=== PATIENT | male | born 1985 | race African-American/Black ===

== ENCOUNTER 2016-07-25 23:32 | Emergency (ER) | payer OTHER ==
[2016-07-26 00:10] VITALS: BP 143/88; PULSE 82; RESP 19; TEMP 98.7; O2SAT 99
--- NOTE | 2016-07-26 00:12 | PD ---
HPI Chief Complaint: Psychiatric Symptoms Time Seen by Provider: 00:00 Travel History International Travel<30 days: No Contact w/Intl Traveler<30days: No Traveled to known affect area: No History of Present Illness HPI 31-year-old male presents under Hernandez act initiated by the police for her. The patient reports that he was in an argument his girlfriend scott. He decided to walk down the street to the [address] [place] [address]. His plan was to just stand there until she came out looking for him. He reports that the police stopped him and he decided to tell the police that "maybe I will get hit by a car" and this was interpreted as a suicidal gesture. He was then placed under Hernandez act. The patient reports that primarily his main motivation tinnitus to make his girlfriend worried about where he is. He denies any desire to harm himself or anybody else. He denies any drug or alcohol use. He has no medical complaints at this time. [facility] Social History Alcohol Use: Yes Tobacco Use: Yes Allergies-Medications (Allergen,Severity, Reaction): Coded Allergies: No Known Allergies (Unverified , 07/25/16) Reported Meds & Prescriptions Reported Meds & Active Scripts Active No Active Prescriptions or Reported Medications Review of Systems Except as stated in HPI: all other systems reviewed are Neg Physical Exam Narrative GENERAL: Well-developed well-nourished male in no acute distress SKIN: Warm and dry. HEAD: Atraumatic. Normocephalic. EYES: Pupils equal and round. No scleral icterus. No injection or drainage. ENT: No nasal bleeding or discharge. Mucous membranes pink and moist. NECK: Trachea midline. No JVD. CARDIOVASCULAR: Regular rate and rhythm. No murmur appreciated. RESPIRATORY: No accessory muscle use. Clear to auscultation. Breath sounds equal bilaterally. GASTROINTESTINAL: Abdomen soft, non-tender, nondistended. Hepatic and splenic margins not palpable. MUSCULOSKELETAL: No obvious deformities. NEUROLOGICAL: Awake and alert. No obvious cranial nerve deficits. Motor grossly within normal limits. Normal speech. PSYCHIATRIC: Appropriate mood and affect; insight and judgment normal. Data Data Last Documented VS Vital Signs Date Time Temp Pulse Resp B/P Pulse Ox O2 Delivery O2 Flow Rate FiO2 07/26/16 02:00 73 18 122/67 97 Room Air 07/26/16 00:10 98.7 Orders Complete Blood Count With Diff (07/26/16 00:09) Comprehensive Metabolic Panel (07/26/16 00:09) Psych Screen (07/26/16 00:09) Drug Screen, Random Urine (07/26/16 00:09) Diet Regular Basic (07/26/16 Breakfast) Labs Laboratory Tests Test 07/26/16 02:20 White Blood Count 5.7 TH/MM3 Red Blood Count 5.17 MIL/MM3 Hemoglobin 13.5 GM/DL Hematocrit 39.7 % Mean Corpuscular Volume 76.8 FL Mean Corpuscular Hemoglobin 26.0 PG Mean Corpuscular Hemoglobin 33.9 % Concent Red Cell Distribution Width 14.1 % Platelet Count 236 TH/MM3 Mean Platelet Volume 8.6 FL Neutrophils (%) (Auto) 36.5 % Lymphocytes (%) (Auto) 48.0 % Monocytes (%) (Auto) 9.4 % Eosinophils (%) (Auto) 4.9 % Basophils (%) (Auto) 1.2 % Neutrophils # (Auto) 2.1 TH/MM3 Lymphocytes # (Auto) 2.7 TH/MM3 Monocytes # (Auto) 0.5 TH/MM3 Eosinophils # (Auto) 0.3 TH/MM3 Basophils # (Auto) 0.1 TH/MM3 CBC Comment DIFF FINAL Differential Comment Sodium Level 141 MEQ/L Potassium Level 3.6 MEQ/L Chloride Level 103 MEQ/L Carbon Dioxide Level 31.5 MEQ/L Anion Gap 7 MEQ/L Blood Urea Nitrogen 13 MG/DL Creatinine 1.20 MG/DL Estimat Glomerular Filtration 85 ML/MIN Rate Random Glucose 118 MG/DL Calcium Level 8.8 MG/DL Total Bilirubin 0.3 MG/DL Aspartate Amino Transf 17 U/L (AST/SGOT) Alanine Aminotransferase 27 U/L (ALT/SGPT) Alkaline Phosphatase 76 U/L Total Protein 7.4 GM/DL Albumin 3.9 GM/DL [facility] Medical Decision Making Medical Screen Exam Complete: Yes Emergency Medical Condition: Yes Medical Record Reviewed: Yes Differential Diagnosis Adjustment reaction, acute psychosis, substance induced mood disorder, major depressive disorder Narrative Course 31-year-old male presents under a Hernandez act for psychiatric evaluation. Mental health screening discussed with the patient. Psychiatric screen ordered. The patient is medically cleared for psychiatric disposition. Diagnosis Primary Impression: Medical clearance for psychiatric admission Scripts No Active Prescriptions or Reported Meds Brady Osborne Jul 26, 2016 00:12
[2016-07-26 02:00] VITALS: BP 122/67; PULSE 73; RESP 18; O2SAT 97
[2016-07-26 02:38] LABS: AUTOMATED NEUTROPHIL # 2.1 TH/MM3 (1.8-7.7); BASOPHIL # 0.1 TH/MM3 (0-0.2); BASOPHIL % 1.2 % (0.0-2.0); EOSINOPHIL # 0.3 TH/MM3 (0-0.4); EOSINOPHIL % 4.9 % (0.0-4.0); HEMATOCRIT 39.7 % (39.0-51.0); HEMO FLAGS DIFF FINAL; LYMPHOCYTE # 2.7 TH/MM3 (1.0-4.8); MEAN CELL VOLUME 76.8 FL (80.0-100.0); MEAN CORPUSCULAR HGB CONC 33.9 % (32.0-36.0); MONO % 9.4 % (0.0-8.0); NEUT % 36.5 % (16.0-70.0); PLATELET COUNT 236 TH/MM3 (150-450); RED BLOOD COUNT 5.17 MIL/MM3 (4.50-5.90); RED CELL DISTRIBUTION WIDTH 14.1 % (11.6-17.2); WHITE BLOOD COUNT 5.7 TH/MM3 (4.0-11.0)
[2016-07-26 02:53] LABS: ALT (GPT) 27 U/L (12-78); ANION GAP 7 MEQ/L (5-15); AST (GOT) 17 U/L (15-37); BICARBONATE 31.5 MEQ/L (21.0-32.0); BLOOD UREA NITROGEN 13 MG/DL (7-18); CHLORIDE 103 MEQ/L (98-107); GLOMERULAR FILTRATION RATE 85 ML/MIN (>89); POTASSIUM 3.6 MEQ/L (3.5-5.1); SODIUM (NA) 141 MEQ/L (136-145)
[2016-07-26 02:55] LABS: ALKALINE PHOSPHATASE 76 U/L (45-117); TOTAL BILIRUBIN ADULT 0.3 MG/DL (0.2-1.0)
[2016-07-26 06:47] VITALS: BP 148/80; PULSE 58; RESP 18; O2SAT 98
[2016-07-26 11:55] VITALS: BP 133/75; PULSE 64; RESP 18; O2SAT 98
--- NOTE | 2016-07-26 13:13 | PD ---
History of Present Illness Chief Complaint: Psychiatric Symptoms Time Seen by Provider: 12:55 Travel History International Travel<30 Days: No Contact w/Intl Traveler<30days: No Known affected area: No Legal Status Legal Status: Hernandez Act Hernandez Act Signed By: Timur Grande History of Present Illness: History of Present Illness HPI 31-year-old male with no psychiatric history who presents under Hernandez act initiated by the police. The patient reports that he was involved in an argument his girlfriend scott and then decided to walk home. He began to walk down the median of the road when he was stopped by the police. Upon questioning by the police he admitted to having said that he was hoping he would get hit by a car. He denies that he was feeling suicidal or homicidal but that he got out of the car after his girlfriend called him a " bitch". He states that he just wanted to get away from her. Patient has no previous contact with [facility] psychiatric illness. No lab work is available. Patient is seen in J pod. Awake, alert and oriented. Engaging and cooperative. Speech is clear and logical . There is no meaghan. There is no psychosis. Patient denies any symptom of depression or anxiety. He denies any suicidal or homicidal ideation, intent or plan at this time. He continues to state that the BA was completed in context of an argument with his girlfriend. PFSH Past Medical History Diminished Hearing: No Musculoskeletal: Yes (2 COMPRESSED LOWER VERTEBRAE) Past Surgical History Surgical History: No Previous Surgery Psychiatric History Psychiatric History Hx Psychiatric Treatment: PATIENT DENIES any previous History of Inpatient Treatment: No Guns or firearms in home: No Social History Single male who lives with his girlfriend and her 2 children . Born and raised in [place] Works in construction. Hx Alcohol Use: Yes Hx Tobacco Use: Yes Hx Substance Use: No (PATIENT DENIES) Hx of Substance Use Treatment: No Allergies-Medications (Allergen,Severity, Reaction): Coded Allergies: No Known Allergies (Unverified , 07/25/16) Reported Meds & Prescriptions Reported Meds & Active Scripts Active No Active Prescriptions or Reported Medications Review of Systems Except as stated in HPI: all other systems reviewed are Neg Musculoskeletal: COMPLAINS OF: Back pain Exam Alert: Yes [place]: Person (ox4) Mood: Calm Affect: Appropriate Speech: Clear, Logical Eye Contact: Normal Memory Intact: Comment (no impairmetn) Hallucinations: Other (negative) Delusions: No Suicidal: Ideation (deneis any) Homicidal: Ideation (deneis any) Insight/Judgement Fair. Not impaired MDM Medical Decision Making Medical Record Reviewed: Yes Assessment/Plan 31 year old m,melissa with o previous psychiatric history who is under a BA after allegedly was found walking in the middle of a road. Patient reports that he was involved in an argument with his girlfriend and that he got out of the car and began to walk in the street. he denies that he was suicidal and does sate that he was expecting to get a reaction from his girlfriend. At this time he does not meet BA criteria and is requesting discharge. Patient will be discharged. Orders Complete Blood Count With Diff (07/26/16 00:09) Comprehensive Metabolic Panel (07/26/16 00:09) Psych Screen (07/26/16 00:09) Drug Screen, Random Urine (07/26/16 00:09) Diet Regular Basic (07/26/16 Breakfast) Diet Regular Basic (07/26/16 Lunch) Diet Regular Basic (07/26/16 Dinner) Results Vital Signs Date Time Temp Pulse Resp B/P Pulse Ox O2 Delivery O2 Flow Rate FiO2 07/26/16 11:55 64 18 133/75 98 Room Air 07/26/16 06:47 58 18 148/80 98 Room Air 07/26/16 02:00 73 18 122/67 97 Room Air 07/26/16 00:10 98.7 82 19 143/88 99 Room Air Laboratory Tests Test 07/26/16 02:20 White Blood Count 5.7 Red Blood Count 5.17 Hemoglobin 13.5 Hematocrit 39.7 Mean Corpuscular Volume 76.8 Mean Corpuscular Hemoglobin 26.0 Mean Corpuscular Hemoglobin 33.9 Concent Red Cell Distribution Width 14.1 Platelet Count 236 Mean Platelet Volume 8.6 Neutrophils (%) (Auto) 36.5 Lymphocytes (%) (Auto) 48.0 Monocytes (%) (Auto) 9.4 Eosinophils (%) (Auto) 4.9 Basophils (%) (Auto) 1.2 Neutrophils # (Auto) 2.1 Lymphocytes # (Auto) 2.7 Monocytes # (Auto) 0.5 Eosinophils # (Auto) 0.3 Basophils # (Auto) 0.1 CBC Comment DIFF FINAL Differential Comment Sodium Level 141 Potassium Level 3.6 Chloride Level 103 Carbon Dioxide Level 31.5 Anion Gap 7 Blood Urea Nitrogen 13 Creatinine 1.20 Estimat Glomerular Filtration 85 Rate Random Glucose 118 Calcium Level 8.8 Total Bilirubin 0.3 Aspartate Amino Transf 17 (AST/SGOT) Alanine Aminotransferase 27 (ALT/SGPT) Alkaline Phosphatase 76 Total Protein 7.4 Albumin 3.9 Diagnosis Primary Impression: Medical clearance for psychiatric admission Additional Impression: Adjustment disorder Psychiatrically Cleared: Yes Med/ Other Pt Specific Info: No Meds Exist/No RX given Prescriptions No Active Prescriptions or Reported Meds Disposition: 01 DISCHARGE HOME Condition: Stable Problem Qualifiers Additional Impression: Adjustment disorder Qualified Code: F43.25 - Adjustment disorder with mixed disturbance of emotions and conduct Mei Davidson Jul 26, 2016 13:13
== END 2016-07-26 15:59 | disposition home or self-care (01) ==
LOC: NEDAMB 23:32 → NEPJ 07-26 15:59
DX: Z02.89 Encounter for other administrative examinations (principal); F43.25 Adjustment disorder with mixed disturbance of emotions and conduct; Z72.0 Tobacco use; Z87.39 Personal history of other diseases of the musculoskeletal system and connective tissue
CPT/HCPCS: 80053; 85025; 99285